=== PATIENT | male | born 2000 | race African-American/Black ===

== ENCOUNTER 2022-06-15 14:45 | Emergency (ER) | payer MEDICAID, OTHER ==
[~2022-06-15] VITALS: Ht 152.4 cm; Wt 37.6 kg
[2022-06-15 17:32] VITALS: BP 129/88
[2022-06-15] MEDS ORDERED: NAPR500T31 PO (18:14)
[2022-06-15] MEDS ORDERED: AMOX500T86 PO (18:14)
== END 2022-06-15 18:21 | disposition home or self-care (01) ==
LOC: ER 14:45
DX: S02.2XXA Fracture of nasal bones, initial encounter for closed fracture (principal); M54.2 Cervicalgia; W22.8XXA Striking against or struck by other objects, initial encounter; Y93.89 Activity, other specified; Y92.89 Other specified places as the place of occurrence of the external cause; Y99.8 Other external cause status
CPT/HCPCS: 70160; 72040